=== PATIENT | male | born 1990 | race African-American/Black ===

== ENCOUNTER 2016-10-20 13:11 | Emergency (ER) | payer OTHER ==
[~2016-10-20 13:11] MED LIST: LORTAB 5/500 TA1 TA1 PO; PEN-VEE K PO; PERIDEX480 ML PO; VOLTAREN75 MG PO
== END 2016-10-20 14:22 | disposition home or self-care (01) ==
LOC: CED 13:11
DX: S61.310A Laceration without foreign body of right index finger with damage to nail, initial encounter (principal); Z23 Encounter for immunization; W23.0XXA Caught, crushed, jammed, or pinched between moving objects, initial encounter; Y92.009 Unspecified place in unspecified non-institutional (private) residence as the place of occurrence of the external cause
CPT/HCPCS: 11760; 90471; 90715; 99283